=== PATIENT | male | born 1975 | race Caucasian/White ===

== ENCOUNTER 2021-09-17 03:29 | Emergency (ER) | payer OTHER ==
[~2021-09-17] VITALS: Ht 172.7 cm; Wt 72.6 kg
--- NOTE | 2021-09-17 04:25 | NUR ---
BIBS FOR VOLUNTARY PSYCH ADMISSION TO [facility]. PT DENIES S/I & H/I. PT IS A/O X 4, RR EVEN AND UNLABORED, NO SOB NOTED. VSS. NO ACUTE DISTRESS NOTED. PATIENT TAKEN TO ER BED 18 WITH TWO RN AT BEDSIDE, SECURITY PRESENT FOR WANDING. PATIENT BELONGINGS TAKEN AND PLACED IN LOCKER. PATIENT PLACED IN HOSPITAL GOWN. WILL CONTINUE TO MONITOR.
--- NOTE | 2021-09-17 04:29 | NUR ---
covid swab collected and sent to lab
--- NOTE | 2021-09-17 04:29 | NUR ---
urine collected and sent to lab
[2021-09-17] MEDS ORDERED: OLANZAPINE 5 MG TABLET PO ONE (05:00)
[2021-09-17] MEDS ORDERED: HYDROCODONE/APAP 5/325MG TABLET PO ONE (05:00)
[2021-09-17 05:05] LABS: HEMATOCRIT 44 % (39-51); HEMOGLOBIN 14.8 g/dL (13.5-17.5); LYMPHOCYTES # (AUTO) 1.8 K/uL (0.8-4.8); MEAN CORPUSCULAR HGB CONC 34 g/dl (31.0-36.0); MEAN CORPUSCULAR VOLUME 90 fL (80-96); MONOCYTES # (AUTO) 0.6 K/uL (0.1-1.30); MONOCYTES % (AUTO) 11.4 % (2.0-12.0); NEUTROPHILS # (AUTO) 2.3 K/uL (1.8-8.9); NEUTROPHILS % (AUTO) 46.6 % (43.0-81.0); PLATELET COUNT (AUTO) 192 K/uL (150-450); RED BLOOD CELL COUNT(AUTO) 4.85 MIL/uL (4.5-6.0); WHITE BLOOD COUNT (AUTO) 4.8 K/uL (4.3-11.0)
[2021-09-17 05:06] LABS: BILIRUBIN,URINE NEGATIVE (NEGATIVE); COLOR,URINE YELLOW (YELLOW); LEUKOCYTE ESTERASE ,URINE NEGATIVE (NEGATIVE); NITRITE, URINE NEGATIVE (NEGATIVE); PROTEIN,URINE NEGATIVE (NEGATIVE); UGLUCOSE NEGATIVE (NEGATIVE)
[2021-09-17 05:25] LABS: CALCIUM, SERUM 8.7 mg/dL (8.5-10.1); CARBON DIOXIDE 29 mmol/L (21-32); CHLORIDE 101 mmol/L (98-107); CREATININE 0.7 mg/dL (0.6-1.3); GLUCOSE 107 mg/dL (74-106); POTASSIUM 3.5 mmol/L (3.5-5.1); SODIUM SERUM 139 mmol/L (136-145); UREA NITROGEN, BLOOD 18 mg/dL (7-18)
[2021-09-17 05:36] LABS: ACETAMINOPHEN 0 ug/ml (10-30); ALANINE AMINOTRANSFERASE 24 U/L (12-78); ALCOHOL, BLOOD < 3 mg/dL (0-0); ALKALINE PHOSPHATASE 113 U/L (46-116); ASPARTATE AMINOTRANSFERASE 28 U/L (15-37); BILIRUBIN,DIRECT 0.1 mg/dL (0.0-0.2); BILIRUBIN,TOTAL 0.4 mg/dL (0.2-1.0); TOTAL PROTEIN, SERUM 7.7 g/dL (6.4-8.2)
[2021-09-17] MEDS ORDERED: OLANZAPINE 5 MG TABLET ONE (06:31)
[2021-09-17] MEDS ORDERED: HYDROCODONE/APAP 5/325MG TABLET ONE (06:31)
--- NOTE | 2021-09-17 09:32 | NUR ---
FAXED CLINICALS TO [facility] INTAKE.
--- NOTE | 2021-09-17 11:28 | NUR ---
CALLED INTAKE FOR UPDATE, AWAITING FEEDBACK FROM POOL GONZALEZ.
--- NOTE | 2021-09-17 11:52 | NUR ---
GIVEN LUNCH, TOL. OLIVARES
[2021-09-17 12:02] VITALS: BP 134/81
--- NOTE | 2021-09-17 12:47 | NUR ---
FIDEL CALLED PT ACCEPTED TO [facility] [address] [place] PLEASE CALL [phone] FOR REPORT.
--- NOTE | 2021-09-17 12:51 | NUR ---
[facility] CALLED PER PATTI PRITCHARD IS 20 MINS.
--- NOTE | 2021-09-17 13:00 | NUR ---
REPORT GIVEN TO XENA FOR CHRISTOPHER
--- NOTE | 2021-09-17 13:38 | NUR ---
REPORT GIVEN TO [facility] STAFF AND THE PATIENT IS DISCHARGED TO [facility] IN STABLE CONDITION.
== END 2021-09-17 13:48 ==
LOC: ER 03:37
DX: F25.9 Schizoaffective disorder, unspecified (principal); F22 Delusional disorders; J45.909 Unspecified asthma, uncomplicated; Z20.822 Contact with and (suspected) exposure to COVID-19; R03.0 Elevated blood-pressure reading, without diagnosis of hypertension
CPT/HCPCS: 36415; 80048; 80076; 80143; 80307; 80320; 81003; 85025; 87426; 99284; C9803; G0480

== ENCOUNTER 2023-06-14 15:03 | Emergency (ER) | payer MEDICAID ==
[~2023-06-14] VITALS: Ht 175.3 cm; Wt 90.7 kg
[2023-06-14] MEDS ORDERED: OLANZAPINE 5 MG TABLET ONE (17:02)
[2023-06-14] MEDS: OLANZAPINE ZYDIS 5 MG TAB.RAPDIS PO ONE (17:03)
[2023-06-14 17:38] LABS: APPEARANCE,URINE CLEAR (CLEAR); BILIRUBIN,URINE NEGATIVE (NEGATIVE); BLOOD, URINE NEGATIVE Ery/uL (NEGATIVE); COLOR,URINE YELLOW (YELLOW); KETONES,URINE 1+ mg/dL (NEGATIVE); LEUKOCYTE ESTERASE ,URINE NEGATIVE (NEGATIVE); NITRITE, URINE NEGATIVE (NEGATIVE); PROTEIN,URINE NEGATIVE (NEGATIVE); UGLUCOSE NEGATIVE (NEGATIVE); UROBILINOGEN,URINE 0.2 EU/dL (0.2)
[2023-06-14 17:42] LABS: BASOPHILS % (AUTO) 0.8 % (0.0-2.0); EOSINOPHILS # (AUTO) 0.1 K/uL (0.0-0.7); EOSINOPHILS % (AUTO) 0.9 % (0.0-6.0); HEMATOCRIT 45 % (39-51); HEMOGLOBIN 15.1 g/dL (13.5-17.5); LYMPHOCYTES # (AUTO) 1.7 K/uL (0.8-4.8); LYMPHOCYTES % (AUTO) 28.7 % (20.0-44.0); MEAN CORPUSCULAR HEMOGLOBIN 31 PG (26.0-33.0); MEAN CORPUSCULAR HGB CONC 34 g/dl (31.0-36.0); MEAN CORPUSCULAR VOLUME 93 fL (80-96); MONOCYTES # (AUTO) 0.8 K/uL (0.1-1.30); MONOCYTES % (AUTO) 13.1 % (2.0-12.0); NEUTROPHILS # (AUTO) 3.3 K/uL (1.8-8.9); NEUTROPHILS % (AUTO) 56.5 % (43.0-81.0); PLATELET COUNT (AUTO) 226 K/uL (150-450); RED BLOOD CELL COUNT(AUTO) 4.81 MIL/uL (4.5-6.0); RED CELL DISTRIBUTION WIDTH 13.8 % (11.5-15.0); WHITE BLOOD COUNT (AUTO) 5.8 K/uL (4.3-11.0)
[2023-06-14 17:57] LABS: ADD URINE CULTURE NO; BACTERIA,URINE None seen /HPF (None Seen); RBC,URINE 0-2 /HPF (0-2); SQUAMOUS EPITHELIAL CELL,UR 0-2 /HPF (None Seen); WBC,URINE 0-2 /HPF (0-3)
[2023-06-14 18:43] LABS: ALBUMIN 3.9 g/dL (3.4-5.0); ALCOHOL, BLOOD < 3 mg/dL (0-10); ALKALINE PHOSPHATASE 112 U/L (46-116); ASPARTATE AMINOTRANSFERASE 33 U/L (15-37); BILIRUBIN,DIRECT 0.2 mg/dL (0.0-0.2); BILIRUBIN,TOTAL 0.6 mg/dL (0.2-1.0); CALCIUM, SERUM 9.4 mg/dL (8.5-10.1); CARBON DIOXIDE 28 mmol/L (21-32); CHLORIDE 99 mmol/L (98-107); CREATININE 0.9 mg/dL (0.6-1.3); GLUCOSE 92 mg/dL (74-106); SODIUM SERUM 135 mmol/L (136-145); UREA NITROGEN, BLOOD 29 mg/dL (7-18)
[2023-06-14 18:44] LABS: SALICYLATE 2.1 mg/dL (2.8-20.0)
[2023-06-14 18:45] LABS: ACETAMINOPHEN <10 ug/ml (10-30)
[2023-06-14 19:50] LABS: ALANINE AMINOTRANSFERASE 36 U/L (12-78)
[2023-06-14 19:56] LABS: BARBITURATE, URINE NEGATIVE (NEGATIVE); BENZODIAZEPINE, URINE NEGATIVE (NEGATIVE); CANNABINOID, URINE NEGATIVE (NEGATIVE); COCCAINE, URINE NEGATIVE (NEGATIVE); OPIATE, URINE NEGATIVE (NEGATIVE); PHENCYCLIDINE SCREEN,URINE NEGATIVE (NEGATIVE)
[2023-06-14 20:23] LABS: AMPHETAMINE, URINE POSITIVE (NEGATIVE)
[2023-06-15 08:10] VITALS: BP 125/69; TEMP 98.5; O2SAT 99
== END 2023-06-15 08:22 ==
LOC: ER 15:03
DX: F22 Delusional disorders (principal); F15.90 Other stimulant use, unspecified, uncomplicated; J45.909 Unspecified asthma, uncomplicated; F20.9 Schizophrenia, unspecified; Z59.00 Homelessness unspecified; Z20.822 Contact with and (suspected) exposure to COVID-19
CPT/HCPCS: 36415; 80048-TC; 80076-TC; 81001; 85025-TC; G0480